=== PATIENT | male | born 1950 | race Caucasian/White ===

== ENCOUNTER 2017-01-09 06:46 | Inpatient (IN) | payer MEDICARE, OTHER ==
[~2017-01-09] VITALS: Ht 175.3 cm; Wt 84.8 kg
[2017-01-09] VITALS (14 sets, daily range): BP systolic 104–146; BP diastolic 50–92; PULSE 59–104; RESP 10–18; O2SAT 90–98
[~2017-01-09 06:46] MED LIST: Acetaminophen IV 1,000 MG in IV Premix 1 EACH IV ONE; Bupivacaine Liposome 1.3% 20 mL Inj INFILTRATE SCH; CLOB15CR3 TP; CeFAZolin Inj 2 GM in IV Premix 1 EACH IV ONE; LOV80 SUBQ; Lactated Ringer's 1,000 ML IV ONE; METO25TA6 PO; MULT-1018 PO; OMEG-38 PO; WARF4TAB6 PO
[2017-01-09 08:21] LABS: BASOPHILS % (AUTO) 0.5 % (0-3); EOSINOPHILS % (AUTO) 3.4 % (0-5); MONOCYTES % (AUTO) 13.8 % (4-12); Mean Corpuscular Hemoglobin 33.9 pg (27.0-35.0); Mean Corpuscular Volume 95.9 fL (81-100); Platelet Count 119 bil/L (150-400)
[2017-01-09 08:27] LABS: INR 1.12 ratio
--- NOTE | 2017-01-09 08:37 | PCM.HPANE ---
Patient Data Date of Service: Jan 09, 2017 Surgeon Admitting Provider: Attending Provider:Lupe Rebolledo MD Primary Care Physician:Wojciech Rodas MD Other Provider:Dianna Bunn Anesthesia Reason for Visit Prostate Cancer Ht/WT & BMI Height (Feet): 5 Height (Inches): 9 Weight (Kilograms): 84.7 Body Mass Index 27.00 Allergies Coded Allergies: aspirin (Verified Allergy, Severe, LIP SWELLING, 01/06/17) benzene (Verified Allergy, Severe, SWOLLEN LIPS, RED RASH, 01/06/17) Past Anesthesia History Anesthesia History: Denies:: Anesthesia Reactions, Malignant Hyperthermia Diabetes History Hx Diabetes?: No MRSA MRSA: No Medications Blood Thinner: Coumadin, Lovenox Last Dose Blood Thinner: Jan 08, 2017 Hypertension Medication: Yes Home Meds Incl Beta Kirk: Yes Date Beta Kirk Taken: Jan 09, 2017 Time Beta Kirk Taken: 614 Reported Medications Enoxaparin (Lovenox)80 Mg/0.8 Ml Tylwazy35 Mg SUBQ Q12 Ref 0 stop for surgery-pm dose 01/08/17 01/06/17 Clobetasol Propionate/Emoll (Clobetasol Emollient 0.05% Crm)15 Gm Cream..g.1 Appl TP BID #1 TUBE 01/06/17 Multivitamin (Multi Vitamin Daily)1 Each Tablet1 Each PO DAILY Ref 0 10/26/16 [employer]-3/Dha/Epa/Fish Oil (Fish Oil 1,000 mg Softgel)1 Each Capsule1 Each PO DAILY 10/26/16 Metoprolol Tartrate 25 Mg Ipflxi44 Mg PO BID Ref 0 10/26/16 Warfarin Sodium 4 Mg Tablet4 Mg PO DAILY Ref 0 10/26/16 History History of ENT Problems?: No HEENT History: Denies:: Abnormal Airway Sinus Problem Denture Type: None Teeth Condition: Within Normal Limits Hx of Heart Problems?: Yes Cardiovascular History: Positive for:: Hypertension Thrombophlebitis (DVT-SEES DR. HENSON/HEMATOLOGY) Denies:: Chest Pain Congestive Heart Failure Heart Murmur Pacemaker Rheumatic Fever Hx of Respiratory Problem?: No Respiratory History: Denies:: Asthma COPD Dyspnea Emphysema Hemoptysis Tuberculosis Use of C-PAP Machine Hx Neurologic Problems?: No Neurological History: Denies:: Alzheimer's Disease CVA Dementia Dizziness Headaches Seizures Hx of GI Problems?: No Hx of Problems?: No Genitourinary History: Denies:: HX of Hemodialysis Kidney Stones Urinary Tract Infection Male Hx: Positive for:: Prostate Problems (S/P PROSTATE BX PROSTATE CA= CURRENT PROBLEM) Denies:: Scrotal Mass Testicular Surgery Skin History: Denies:: History Skin Disorders? Pressure Ulcers Hx Musculoskeletal Problems?: No Musculoskeletal History: Denies:: Back Injury Joint Replacement Musculoskeletal Trauma Hx of Psycho/Social Problems?: No Psycho Social History: Denies:: Anxiety Bipolar Disorder Hx Depression Hx Surgeries?: Yes (PROSTATE BX) Hx Any Other Health Problems?: Yes Other History: Positive for:: Cancer (PROSTATE) Denies:: Endocrine Disease Hospitalization Thyroid Disease Hx Diabetes: No Hx Alcohol Use: NoHx Substance Use: No Smoking Status: Unknown if Ever Smoker Have You Smoked inLast 12 mo: No Stop/Bang S-Snoring: Do You Snore Loudly: No T-Tired: feel tired, fatigued: No O-Obsered: Observed not breath: No P-Blood Pressure: treated: Yes B- Body Mass Index > 35 kg/m2: No A- Age over 50: Yes N- Neck Large Circumference: No G- Gender Male: Yes KASSIE Total Score: 3 KASSIE Risk Assessment: Low Risk, <3 Yes Risk Assessment Category Category 1A: Patient has history of documented sleep apnea, and HAS NOT received any narcotic, sedative or anesthesia administration during this stay. Category 1B: Patient has history of documented sleep apnea, and HAS received any narcotic , sedative or anesthesia administration during this stay Category 2: Patient has SUSPECTED Obstructive Sleep Apnea, and HAS received any narcotic , sedative or anesthesia administration during this stay. Category 3: Patient has SUSPECTED Obstructive Sleep Apnea and HAS NOT received narcotic, sedative or anesthesia administration during this stay. Category 4: Outpatient in Procedural Areas with known sleep apnea or who screen positive for High Risk via the STOP/BANG questionnaire. Exam Exam Vital Signs Vital Signs Date Time Temp Pulse Resp B/P Pulse Ox O2 Delivery O2 Flow Rate FiO2 01/09/17 07:05 35.9 59 16 146/81 98 Room Air General Appearance: Alert, Oriented X3, Cooperative, No Acute Distress HEENT/AIRWAY: MP 2 Lungs: Clear to Auscultation, Normal Air Movement Heart: Exam Unremarkable, Regular Rate/Rhythm, No Murmurs/Rubs/Gallops Meds/Labs/Diagnostics Admission Meds Current Medications Lactated Ringer's 1,000 ml @ 120 mls/hr Q8H20M ONCE IV Last administered on 07:14; Start 01/09/17 at 05:00; Stop 01/09/17 at 13:19 Acetaminophen/ Premix (Tylenol IV/IV Premix) 100 ml @ 400 mls/hr PREOP ONCE IV Last administered on 01/09/17 08:17; Start 01/09/17 at 05:00; Stop 01/09/17 at 05:14; Status DC Labs Test 01/09/17 07:55 White Blood Count 3.9th/mm3 (3.8-10.1) Red Blood Count 4.60mil/mm3 (4.40-5.80) Hemoglobin 15.6g/dL (13.8-17.2) Hematocrit 44.1% (41.0-50.0) Mean Corpuscular Volume 95.9fL (81-100) Mean Corpuscular Hemoglobin 33.9pg (27.0-35.0) Mean Corpuscular Hemoglobin Concent 35.4% (32.0-37.0) Red Cell Distribution Width 12.4% (12.3-15.4) Platelet Count 119bil/L (150-400) Neutrophils (%) (Auto) 60.0% (40-74) Lymphocytes (%) (Auto) 21.8% (14-46) Monocytes (%) (Auto) 13.8% (4-12) Eosinophils (%) (Auto) 3.4% (0-5) Basophils (%) (Auto) 0.5% (0-3) Prothrombin Time 12.0sec (8.1-12.5) Prothromb Time International Ratio 1.12ratio Plan Impression Patient chart reviewed, patient interviewed and anesthestic plan with risks, benefits, and alternatives discussed, and informed consent obtained. NPO per Anesth. Guidelines: Yes ASA Physical Status: ASA3 Severe Disease Anesthetic Plan: GA, SAB Bene/Risks/Altern/Consents: Yes HP Complete Prior to Induction: Yes Demetris King MD Jan 09, 2017 08:37
[2017-01-09] MEDS ORDERED: Lactated Ringer's 500 ML IV PRN (09:54)
[2017-01-09] MEDS ORDERED: Lactated Ringer's 1,000 ML IV SCH (09:54)
[2017-01-09] MEDS ORDERED: Bupivacaine Liposome 1.3% 20 mL Inj INFILTRATE ONE (09:54)
[2017-01-09] MEDS ORDERED: Phenylephrine 10,000 mCg/mL Inj IVPUSH PRN (09:55)
[2017-01-09] MEDS ORDERED: EPHEDrine Sulfate 50 mg/mL Inj IVPUSH PRN ×2 (09:55)
[2017-01-09] MEDS ORDERED: fentaNYL-PF 50 mCg/mL 2 mL Inj IVPUSH PRN (09:55)
[2017-01-09] MEDS ORDERED: Atropine 0.4 mg/mL Inj IVPUSH PRN (09:55)
[2017-01-09] MEDS ORDERED: MetoCLOpramide 5 mg/mL 2 mL Inj IVPUSH PRN ×2 (09:55→11:40)
[2017-01-09] MEDS ORDERED: HYDROmorphone 1 mg/mL Inj IVPUSH PRN ×2 (09:55→11:40)
[2017-01-09] MEDS ORDERED: hydrALAZINE 20 mg/mL Inj IVPUSH PRN (09:55)
[2017-01-09] MEDS ORDERED: Ondansetron 2 mg/mL 2 mL Inj IVPUSH PRN (09:55)
[2017-01-09] MEDS ORDERED: Labetalol 5 mg/mL 4 mL Inj IV PRN (09:55)
[2017-01-09] MEDS ORDERED: Polyethylene Glycol (PEG) 17 Gm Powder PO PRN (11:40)
[2017-01-09] MEDS ORDERED: diphenhydrAMINE 25 mg Capsule PO PRN (11:40)
[2017-01-09] MEDS ORDERED: Lactated Ringer's 1,000 ML IV ONE (11:50)
--- NOTE | 2017-01-09 11:55 | PCM.ANEP1 ---
Post Anesthesia PACU Phase 1 Assessment Date of Service: Jan 09, 2017 Vital Signs 36.8 104/58 86 12 90% RA Anesthetic Administered: GA Level of Alertness: Sleepy, easy to arouse VALDEZ's with Equal Strength: Yes Pain: No Nausea or Vomiting: No CV Function & Hydration Stable: Yes Airway Device: Oxygen Delivery: Room Air Lungs: Clear to Auscultation, Normal Air Movement PACU Phase 2 Assessment Complications: No Follow up Care: No Patient Instructions Provided: Yes Demetris King MD Jan 09, 2017 11:55
[2017-01-09] MEDS ORDERED: Dexamethasone 4 mg/mL Inj ONE (12:57)
[2017-01-09] MEDS ORDERED: EPHEDrine/NS 5 mg/mL 5 mL Syringe ONE (12:57)
[2017-01-09] MEDS ORDERED: Lidocaine PF 1% 30 mL Inj ONE (12:57)
[2017-01-09] MEDS ORDERED: Morphine PF 1 mg/mL 10 mL Inj ONE (12:57)
[2017-01-09] MEDS ORDERED: fentaNYL-PF 50 mCg/mL 2 mL Inj ONE (12:57)
[2017-01-09] MEDS ORDERED: HYDROmorphone 2 mg/mL Inj ONE (12:57)
[2017-01-09] MEDS ORDERED: Rocuronium 10 mg/mL 5 mL Inj ONE (12:57)
[2017-01-09] MEDS ORDERED: Phenylephrine/NS 100 mCg/mL 10 mL Syringe IVPUSH ONE (12:57)
[2017-01-09] MEDS ORDERED: Propofol 10,000 mCg/mL 20 mL Inj ONE (12:57)
[2017-01-09] MEDS ORDERED: Ondansetron 2 mg/mL 2 mL Inj ONE (12:57)
--- NOTE | 2017-01-09 13:20 | NUR ---
PostOp Pt comes via bed post Radical Retropubic Prostatectomy. Pt A&OX4, talking an joking with staff appropriately. C/O 2/10 pain just a dull pressure or ache at this time. 2L NC to keep SPO2>92%. CPOx in use. Melendrez catheter in place and draining to gravity dark lisa urine with small amount of sediment but no clots noted at this time. Some sanguineous discharge noted from around urethra and catheter at tip of penis. Telfa and Biooclusive over incision minimal drainage sero-sanguineous; C/D/I. MAXIMUS Dressing C/D/I and draining to suction sanguineous. IV in Left and right FA. Denies CP, SOB, Nausea. Care continues
[2017-01-09 13:31] LABS: APPEARANCE,URINE SLIGHTLY CLOUDY (CLEAR,HAZY); COLOR,URINE DARK YELLOW (YELLOW)
[2017-01-09 13:32] LABS: OCCULT BLOOD,URINE LARGE (NEGATIVE); PH,URINE 6.5 (5.0-8.0); UROBILINOGEN,URINE NORMAL (NORMAL)
[2017-01-09] MEDS: Lactated Ringer's 1,000 ML IV SCH ×2 (13:44→22:48)
[2017-01-09] MEDS: Acetaminophen IV 1,000 MG in IV Premix 1 EACH IV SCH ×2 (14:04→20:14)
--- NOTE | 2017-01-09 18:22 | NUR ---
Ambulation Pt was up in chair for dinner. Sat at side of bed for a while. 1 Assist stand and wlak small steps 2 feet to recliner chair. Pt reports some lightheadedness slightly but denies dizziness. Melendrez patent and draining to gravity. MAXIMUS to suction draining Sanguineous. Will continue to encourage ambulation. Care continues
[2017-01-10 00:23] VITALS: BP 113/57; PULSE 72; RESP 16; O2SAT 96
[2017-01-10] MEDS: Acetaminophen IV 1,000 MG in IV Premix 1 EACH IV SCH ×3 (02:38→11:40)
[2017-01-10] MEDS: Lactated Ringer's 1,000 ML IV SCH ×3 (03:36→11:54)
[2017-01-10 05:39] VITALS: BP 108/64; PULSE 57; RESP 16; O2SAT 97
--- NOTE | 2017-01-10 06:34 | NUR ---
Activity Pt moves from bedside recliner to bed with no dizziness. Melendrez care performed, bloody drainage removed and applied KY jelly for comfort; pt states effective. Melendrez draining large amounts clear yellow urine, no blood or clots present. No irrigation needed. No chest pain, abdominal discomfort managed with IV apap per schedule. CPOX in place per post-op orders. LR infusing at 125. Care continues
--- NOTE | 2017-01-10 08:22 | PROG NOTE ---
[address] [address] PROGRESS NOTE PATIENT: ADITHYA AMEZCUA : 1950 MR#: [id number] ADMIT: 01/09/2017 JOB ID: [id number] DATE: 01/10/2017 SUBJECTIVE: Postop day #1, status post radical prostatectomy. He had a quiet restful night. Minimal pain complaints. He tolerated a general diet without issue. OBJECTIVE: Afebrile. Vital signs are stable. Eight hour urine output 2400 cc. Eight hour MAXIMUS output 50 cc. On examination, he is sitting upright in bed, drinking coffee, visiting with his , in no acute distress. Chest: Equal, clear, and unlabored bilaterally. Abdomen is scaphoid, soft. Dressing intact with serosanguineous MAXIMUS output. Melendrez indwelling, with essentially clear light lisa output. Extremities: No edema, cyanosis, or clubbing. SCDs are in place. IMPRESSION: Stable postoperative day #1. PLAN: 1. Increase diet and activity. 2. Catheter care and use instruction. 3. Pathology pending.
[2017-01-10] MEDS: Omega-3 Fatty Acids 1,000 mg Capsule PO SCH (08:30)
[2017-01-10] MEDS ORDERED: Lidocaine 2% 6mL Topical Jelly TOPICAL PRN (08:45)
--- NOTE | 2017-01-10 09:20 | OP ---
[address] [address] OPERATIVE REPORT PATIENT: ADITHYA AMEZCUA : 1950 MR#: [id number] ADMIT: 01/09/2017 JOB ID: [id number] DATE OF SURGERY: 01/09/2017 PREOPERATIVE DIAGNOSIS(ES): Carcinoma of the prostate. POSTOPERATIVE DIAGNOSIS(ES): Carcinoma of the prostate. OPERATION PERFORMED: Radical retropubic prostatectomy and bilateral pelvic lymphadenectomy. SURGEON: Lupe Rebolledo M.D. ANESTHESIOLOGIST: Demetris King M.D. ANESTHESIA: General plus Duramorph spinal. PIT FURNACE MELTER: Chioma Sanches. ESTIMATED BLOOD LOSS: 50 cc. COMPLICATIONS: None. PROCEDURE SUMMARY: Patient was positioned in supine and the abdomen, genitalia, and groin were prepped and draped in sterile fashion. A 22-Jamaican Melendrez catheter was inserted in the lower urinary tract. A midline infraumbilical incision was then made through the structures of the midline abdominal wall to the preperitoneal space. The anterior pelvis and the space of Retzius were then exposed using blunt technique and was extended down the lateral aspects of the prostate. Next, hemostatic dzxdwh-kv-zszfa ligatures of 2-0 Biosyn were then placed distally at the dorsal venous complex and Santorini's plexus. Additional interrupted vfdlnw-kh-ogzeme were placed dorsally at the proximal prostate, as well as laterally for around large tributary veins. Next, a transverse prostatotomy was performed through the capsule and the adenoma was then identified and developed using a combination of blunt and sharp dissection. The adenoma was delivered from the prostate proper and was submitted to Pathology for routine gross and microscopic examination. The prostatic defect was then packed with a lap sponge and held under pressure for about 5 minutes. Next, the bladder neck was repaired using interrupted ejbkom-oc-mrkqg 2-0 Biosyn. The posterior bladder neck was then brought down distally and sutured to the capsule just proximal to the membranous urethra using a asnvcw-eh-gnoru stitch. The 22-Jamaican catheter was then re-advanced into the bladder. The capsule was then closed using running 2-0 Biosyn. Hemostasis was excellent. The balloon was then filled with 30 mL and the bladder was irrigated clear. The catheter was then put to gravity drainage. Next, a 15-Jamaican Kofi drain was positioned in the space of Retzius and brought out through a separate stab incision to the right of the midline. It was sutured to the level of skin with 2-0 silk. Next, the midline rectus fascia was closed with running 0 Maxon. The subcutaneous layer was reapproximated using 2-0 Biosyn. Finally, the skin was reapproximated using a 4-0 subcuticular Monocryl. The skin surface was cleaned and dried. A Telfa pad was applied longitudinally over the incision and OpSite over this. The drain was placed to bulb self suction. The patient was then awakened, transferred to [facility], and transferred to recovery area in awake and stable condition. He tolerated the procedure well.
--- NOTE | 2017-01-10 09:23 | NUR ---
Social Work- Initial Assessment/ Readiness for Discharge Data: See Initial Assessment. Pt is a 66 year old male admitted 01/09/17 for prostate cancer per H&P. Pt is likely to discharge today. Pt's insurance is [employer]. Pt's PCP is Ambrocio Rodas MD. Pt's NOK is Leonarda Thomson, or [phone]. Pt's readmit risk score is not listed at this time. SW met with pt and at bedside regarding discharge plan,SW role explained. Pt alert and oriented x3. Pt resides in [place] with his in a single story home with 4 steps to enter where he is independent at baseline. Pt uses no DME and does not drive. Pt has no HH, SNF history, no LTC or VA benefits. Pt has no DPOA on file but states that it is complete, SW requested pt to bring copy to the hospital. Pt agreeable. Pt's is DPOA. Pt to discharge home with Leonarda to transport via POV, no discharge needs identified. SW provided phone number and plan on whiteboard in room. SW will continue to follow if needs arise. Assessment: Pt who is independent at baseline. Plan: Pt to discharge home with Leonarda to transport via POV, no discharge needs identified. SW will continue to follow if needs arise. JESSENIA Pedraza Addendum: 01/10/17 at 0927 by MYESHA GROSSMAN SS Amended: Links added.
[2017-01-10 11:14] VITALS: BP 129/72; PULSE 55; RESP 18; O2SAT 98
[2017-01-10 15:15] VITALS: BP 126/82; PULSE 70; RESP 16; O2SAT 99
[2017-01-10 16:18] VITALS: BP 125/72; PULSE 66; RESP 20; O2SAT 95
--- NOTE | 2017-01-10 18:30 | NUR ---
MAXIMUS Maximus output for the day shift was around 70mls. Per [facility] this AM call him if the MAXIMUS seems to have a high output. Kesha phoned and left message. Maximus not to suction at this time and to gravity until further notice from [facility].
[2017-01-10 20:14] VITALS: BP 180/84; PULSE 51; O2SAT 98
[2017-01-11] MEDS: Lactated Ringer's 1,000 ML IV SCH (03:36)
[2017-01-11 05:11] VITALS: BP 145/86; PULSE 82; RESP 20; O2SAT 95
--- NOTE | 2017-01-11 07:24 | NUR ---
Catheter Education Pt will be going home with campos, given brief education in cleaning and leg bag. Pt does not want to DC his own catheter. 10 ml output in MAXIMUS which is to gravity. Apap PO for pain. No complaints of SOB or chest pain. Care continues
[2017-01-11] MEDS: Omega-3 Fatty Acids 1,000 mg Capsule PO SCH (10:23)
--- NOTE | 2017-01-11 13:36 | PATH ---
SURGICAL PATHOLOGY Attending Physician:Lupe Rebolledo MD CASE STATUS: Signed Out PATIENT NAME: ADITHYA AMEZCUA PID: [id number] : 1950 DATE COLLECTED:01/09/2017 21:31 SPECIMEN: 1: Lymph Node, Biopsy 2: Lymph Node, Biopsy 3: Prostate, Radical Resection CLINICAL HISTORY: PROSTATE CANCER 1). RIGHT LYMPH NODES 2). LEFT LYMPH NODES 3). PROSTATE FINAL DIAGNOSIS: PROSTATE ADENOCARCINOMA (SEE CAP SUMMARY BELOW): 1. 2. RIGHT AND LEFT PELVIC LYMPH NODES (SEE CAP SUMMARY BELOW). 3.RADICAL RESECTION OF PROSTATE GLAND: ADENOCARCINOMA (SEE CAP SUMMARY BELOW) CAP CANCER SUMMARY PROCEDURE: RADICAL PROSTATECTOMY PROSTATE SIZE: 24.2 GRAMS, MEASURING 3.2 X 3.3 X 4.2 CM HISTOLOGIC TUMOR TYPE: ADENOCARCINOMA, ACINAR TYPE. HISTOLOGIC GRADE: MIGUELITO PRIMARY PATTERN: 4 MIGUELITO SECONDARY PATTERN: 3 MIGUELITO TERTIARY PATTERN: 5, BUT LESS THAN 5% OF TUMOR TOTAL MIGUELITO SCORE: 4 + 3 = 7 GRADE GROUP: GRADE 3 OF 5 PERCENTAGE OF MIGUELITO PATTERN 4: APPROXIMATELY 60% TUMOR QUANTITATION: APPROXIMATELY 60% OF GLAND INVOLVED WITH TUMOR EXTRAPROSTATIC EXTENSION: FOCALLY POSITIVE ADJACENT TO THE LEFT SEMINAL VESICLE SEMINAL VESICLE INVASION: RIGHT: POSITIVE; LEFT: POSITIVE SURGICAL MARGINS: ALL INKED MARGINS NEGATIVE FOR TUMOR REGIONAL LYMPH NODES: NUMBER OF NODES EXAMINED: 2 (PARTS 1 AND 2). SITE OF LYMPH NODES: PELVIC LYMPH NODES (ONE FROM THE RIGHT AND ONE FROM THE LEFT) NUMBER OF NODES POSITIVE FOR TUMOR: 0 PATHOLOGIC STAGE (TNM): PRIMARY TUMOR: pT3b REGIONAL LYMPH NODES: pN0 ICD10 C61 GROSS DESCRIPTION: The specimens are received in formalin, labeled with the patient's name, and sublabeled as the following: (1) right lymph nodes; (2) left lymph node; (3) prostate. (1) The specimen consists of a lymph node (4.8 x 3.2 x 0.8 cm). Section code: (1A-1F) one lymph node, serially sectioned. Specimen entirely submitted. (2) The specimen consists of a lymph node (6.5 x 2.4 x 0.9 cm). Section code: (2A-2F) one lymph node, serially sectioned. Specimen entirely submitted. (3) The specimen consists of a prostate gland (24.2 g, 3.2 cm AP, 3.3 cm base-apex, 4.2 cm ML) with seminal vesicles (right-2.9 x 1.6 x 0.7 cm; left-4.2 x 2.2 x 1.1 cm) and vasa deferentia (right: length-2.1, diameter-0.6 cm; left: length-3.0 cm, diameter-0.5 cm). The prostate gland is serially sectioned base to apex into 11 slices. The parenchyma is dickerson-white, congested and rubbery with a whorled multinodular appearance. No masses, lesions, or irregular firm areas are identified. Ink code: purple-right anterior; yellow-right posterior; blue-left anterior; green-left posterior; orange-urethral orifice. Section code: (3A, 3B) right seminal vesicle and vasa deferentia-base junction; (3C, 3D) left seminal vesicle and vasa deferentia-base junction; (3E-3F) base, perpendicularly sectioned and submitted right to left, entirely submitted; (3G-3H) slice #3, bisected and submitted right to left, entirely submitted; (3I-3J) slice #4, bisected and submitted right to left, entirely submitted; (3K-3L) slice #5, bisected and submitted right to left, entirely submitted; (3M-3N) slice #6, bisected and submitted right to left, entirely submitted; (3O-3P) slice #7, bisected and submitted right to left, entirely submitted; (3Q-3R) slice #8, bisected and submitted right to left, entirely submitted; (3S-3T) apex, perpendicularly sectioned and submitted right to left, entirely submitted. 01/10/17 JM MICRO DESCRIPTION: Sections from part 3 are from a radical prostatectomy specimen. There is invasive adenocarcinoma of the acinar type present throughout the gland. The tumor is bilateral and involves approximately 60% of the gland. Tumor also invades both seminal vesicles. There is focal capsular invasion both on the right and the left posterior aspect. There is extraprostatic soft tissue invasion in a single focus adjacent to the left seminal vesicle. The overall histologic pattern is considered to be Miguelito score 4 + 3 = 7. There is a focal tertiary pattern 5, but this is considered less than 5% of the tumor. Perineural space invasion is present, but there is no evidence of lymphatic or vascular invasion. Sections from parts 1 and 2 are of single lymph nodes from the right and the left pelvic region. These nodes are negative for tumor. ICD-9 CODES: CPT CODES: 1: 64396 2: 04856 3: 05263 Electronically Signed Out Cheo Nath MD [facility] Pathology [facility] [address], [place] [address] Technical component performed at [facility], [facility] [address], [place], [address]
--- NOTE | 2017-01-11 14:01 | NUR ---
Social Work- Discharge Data: EMR reviewed. Pt is on day 2 of hospitalization for prostate cancer per H&P. Pt is POD 2. Pt discharged today. Pt is independent at baseline. Pt to discharge home to [place] with spouse to transport. No discharge needs identified. Assessment: Pt who is independent at baseline. Plan: Pt to discharge home to [place] with spouse to transport. No discharge needs identified. JESSENIA Pedraza
--- NOTE | 2017-01-11 19:34 | NUR ---
Discharge/Melendrez education Patient was discharged home with this afternoon. Melendrez cath and leg bag teaching was done with patient and his both agreed to understanding and denied any further questions when asked. Patient will call to schedule follow up appointment and appointment for removal of Melendrez as patient did not want to learn to do o his own. Medication were discussed. Pt given verbal and written discharge instructions.
== END 2017-01-11 13:45 | disposition home or self-care (01) | DRG 708 ==
LOC: SAS 06:46 → OSC 12:56
PROVIDERS: ADMIT Specialist; ATTEND Specialist
PROC: 07BC0ZX Excision of Pelvis Lymphatic, Open Approach, Diagnostic (ICD-10-PCS; 2017-01-09)
PROC: 0VT00ZZ Resection of Prostate, Open Approach (ICD-10-PCS; principal; 2017-01-09 09:00)
DX: C61 Malignant neoplasm of prostate (principal); I10 Essential (primary) hypertension; Z86.718 Personal history of other venous thrombosis and embolism; Z79.01 Long term (current) use of anticoagulants